=== PATIENT | male | born 1940 | race Caucasian/White ===

== ENCOUNTER 2018-11-09 10:49 | Emergency (ER) | payer MEDICARE ==
[2018-11-09 11:07] VITALS: BP 132/82
--- NOTE | 2018-11-09 11:58 | UC ---
Respiratory Complaint HPI - HPI Summary HPI Summary: Patient is 78 year old gentleman, who presents today to the urgent care with sore throat headache and sinus pressure for past 1 months . There is associated post nasal drip . Reports headache behind the eye. There is cough productive of significant phlegm . Last night had some ear discomfort in bilateral ears . noticed some pinkish discharge from the ear on his Q tip . No sick contacts . No skin rash. Denies any fever, chills, cough chest pain or shortness of breath . Denies any abdominal pain , nausea or vomiting but has intermittent diarrhea and constipation. His last bowel movement was last week. - History of Current Complaint Chief Complaint: UCGeneralIllness Stated Complaint: SINUS CONCERN Time Seen by Provider: 11/09/18 11:52 Hx Obtained From: Patient Pain Intensity: 0 - Allergies/Home Medications Allergies/Adverse Reactions: Allergies Allergy/AdvReac Type Severity Reaction Status Date / Time No Known Allergies Allergy Verified 11/09/18 11:02 Home Medications: Home Medications Bupropion XL* [Wellbutrin XL *] 300 mg PO DAILY 11/09/18 [History Confirmed 04/22] PMH/Surg Hx/FS Hx/Imm Hx - Additional Past Medical History Additional PMH: HTN COPD, GERD Anxiety Previously Healthy: Yes - Surgical History Surgical History: Yes Surgery Procedure, Year, and Place: gallbladder - Family History Known Family History: Positive: Hypertension, Respiratory Disease - Social History Alcohol Use: None Substance Use Type: None Smoking Status (MU): Former Smoker Have You Smoked in the Last Year: No When Did the Patient Quit Smoking/Using Tobacco: 1986 Review of Systems All Other Systems Reviewed And Are Negative: Yes Constitutional: Positive: Negative Skin: Positive: Negative Eyes: Positive: Negative ENT: Positive: Sore Throat, Ear Ache, Sinus Congestion, Sinus Pain/Tenderness Respiratory: Positive: Negative, Cough - productive of phlegm Cardiovascular: Positive: Negative Gastrointestinal: Positive: Diarrhea, Other - intermittent diarrhea and constipation Genitourinary: Positive: Negative Motor: Positive: Negative Neurovascular: Positive: Negative Musculoskeletal: Positive: Negative Neurological: Positive: Negative Psychological: Positive: Negative Is Patient Immunocompromised?: No Physical Exam - Summary Physical Exam Summary: Physical Exam: Const: Appears well. No signs of apparent distress present. Alert and oriented x 3. Musculo: Walks with a normal gait. Head/Face: Atraumatic, normocephalic on inspection. Eyes: EOMI and PERRLA in both eyes. Conjunctivae clear. No discharge noted ENT: Hearing normal, TM normal appearing bilaterally . EAC normal appearing bilaterally . Sinus tenderness noted in ethmoid sinuses bilaterally . No pharyngeal erythema, no exudates. No lymphadenopathy . Respiratory: Respirations are unlabored. Lungs clear to auscultation bilaterally, no wheezing , rhonchi or rales noted . CVS: Regular rate and Rhythm, S1S2 normal , no murmurs identified. Extremities: Peripheral circulation is grossly normal. Pulses 2+ Abdomen : Soft, slightly bloated , mild generalized tenderness in all quadrants. Bowel sounds present . No guarding , rebound tenderness or rigidity noted. Skin: No lesions or rash located on the upper extremities or on the lower extremities. Neuro: Cranial nerves II to XII intact, motor and sensory intact. DTR Intact bilaterally. Mood is normal. Affect is normal. Triage Information Reviewed: Yes Vital Signs: Initial Vital Signs Temp 97.4 F 11/09/18 10:59 Pulse 74 11/09/18 10:59 Resp 18 11/09/18 10:59 BP 132/82 11/09/18 10:59 Pulse Ox 98 11/09/18 10:59 Vital Signs Reviewed: Yes UC Diagnostic Evaluation - Laboratory O2 Sat by Pulse Oximetry: 98 Respiratory Course/Dx - Course Course Of Treatment: During the visit today, we discussed the findings which can be due to chronic sinusitis over past month - start him on augmentin. Also ,he did not report any abdominal pain but on exam there is mild generalized tenderness and minimal bloating- this can be due to constipation as his last Bowel movement was last week saturday. Plan to start him on laxative . I will prescribe the medication to the pharmacy . Patient expressed understanding . - Differential Dx/Diagnosis Provider Diagnosis: Sinusitis, Constipation Discharge - Sign-Out/Discharge Documenting (check all that apply): Patient Departure All imaging exams completed and their final reports reviewed: No Studies - Discharge Plan Condition: Stable Disposition: HOME Prescriptions: Amoxicillin/Clavulanate TAB* [Augmentin TAB 875*] 875 mg PO BID 14 Days #28 tab Polyethylene Glycol 3350 [Miralax] 17 gm PO DAILY 7 Days #1 [email or web address] Patient Education Materials: Constipation (ED), Sinusitis (ED) Referrals: Kumar Godoy MD [Primary Care Provider] - 2 Days Additional Instructions: Please start taking the medication as prescribed to the pharmacy . Follow up with your primary care doctor in 2 days. Patients blood pressure slightly high in Urgent care today , plan follow up with PCP for better control Return to Urgent care / ER if symptoms get worse. - Billing Disposition and Condition Condition: STABLE Disposition: Home
== END 2018-11-09 12:22 | disposition home or self-care (01) ==
LOC: UCCORT 10:49
DX: J32.9 Chronic sinusitis, unspecified (principal); K59.00 Constipation, unspecified; I10 Essential (primary) hypertension; Z87.891 Personal history of nicotine dependence
CPT/HCPCS: 99212; G0463

== ENCOUNTER 2018-11-22 10:16 | Emergency (ER) | payer MEDICARE ==
[2018-11-22 10:41] VITALS: BP 142/62
--- NOTE | 2018-11-22 11:41 | UC ---
UC General HPI - HPI Summary HPI Summary: pt is c/o a burning rash on his penis that he noticed yesterday. pt states he routinely pulls the skin back to clean the area. he does have some burning with urination and wants to r/ a uti. pt also has episodes of dizziness that are not new for him. he notes more dizziness with uti's thus want to rule that out. pt is on augmentin for a sinusitis and has one dose left. no HDZ, visual changes or focal deficits. no current dizziness. - History of Current Complaint Chief Complaint: UCGU Stated Complaint: URINARY/PERSONAL Time Seen by Provider: 11/22/18 11:33 Hx Obtained From: Patient, Family/General Internal Medicine Doctor Pain Intensity: 2 Associated Signs & Symptoms: Negative: Abdominal Pain, Fever - Allergy/Home Medications Allergies/Adverse Reactions: Allergies Allergy/AdvReac Type Severity Reaction Status Date / Time No Known Allergies Allergy Verified 11/22/18 10:36 Home Medications: Home Medications Polyethylene Glycol 3350 [Miralax] 17 gm PO DAILY PRN 11/22/18 [History Confirmed 11/22/18] PMH/Surg Hx/FS Hx/Imm Hx Respiratory History: COPD GI/ History: Gastroesophageal Reflux Neurological History: Dementia Psychological History: Depression - Surgical History Surgical History: Yes Surgery Procedure, Year, and Place: gallbladder - Family History Known Family History: Positive: Hypertension, Respiratory Disease - Social History Lives: With Family Alcohol Use: None Substance Use Type: None Smoking Status (MU): Former Smoker Have You Smoked in the Last Year: No When Did the Patient Quit Smoking/Using Tobacco: 1986 - Immunization History Vaccination Up to Date: Yes Review of Systems All Other Systems Reviewed And Are Negative: Yes Constitutional: Positive: Negative Skin: Positive: Rash Eyes: Positive: Negative ENT: Positive: Negative Respiratory: Positive: Negative Cardiovascular: Positive: Negative Gastrointestinal: Positive: Negative Motor: Positive: Negative Neurovascular: Positive: Negative Musculoskeletal: Positive: Negative Neurological: Positive: Negative Psychological: Positive: Negative Physical Exam Triage Information Reviewed: Yes Appearance: Well-Appearing Vital Signs: Initial Vital Signs Temp 97.9 F 11/22/18 10:31 Pulse 90 11/22/18 10:31 Resp 18 11/22/18 10:31 BP 142/62 11/22/18 10:31 Pulse Ox 97 11/22/18 10:31 Vital Signs Reviewed: Yes Eyes: Positive: Conjunctiva Clear ENT: Positive: Normal ENT inspection Neck: Positive: Supple, Nontender, No Lymphadenopathy Respiratory: Positive: No respiratory distress Cardiovascular: Positive: RRR Abdomen Description: Positive: Nontender, Other: - No inguinal adenopathy Bowel Sounds: Positive: Present Male Genital Exam: Positive: Other - Strong femoral pulses. No inguinal adenoapthy. No scrotal/testicular swelling or rash. Circumcised but when slides skin at base of penis back, the base of his glans is macerated and red. No odor or buildup. Musculoskeletal: Positive: ROM Intact Neurological: Positive: Alert, Other: - CN grossly intact. steady gait. Psychological: Positive: Normal Response To Family, Age Appropriate Behavior Skin Exam: Normal Diagnostics - Laboratory Diagnostic Studies Completed/Ordered: u/a= trace leukocytes and ketones. culture pending. Course/Dx - Course Course Of Treatment: dizziness is chronic and recurrent. no focal deficits. no concern for tia/cva. u/a only trace leukocytes with culture pending thus no tx for uti. exam c/w balanitis. pt hase been on augmentin all along and has one dose left thus will only cover for fungal infection. - Diagnoses Provider Diagnosis: Balanitis Discharge - Sign-Out/Discharge Documenting (check all that apply): Patient Departure All imaging exams completed and their final reports reviewed: No Studies - Discharge Plan Condition: Stable Disposition: HOME Prescriptions: Miconazole TOPICAL CREAM 2%* [Monistat 2%*] 1 applic TOPICAL BID 10 Days #1 tube Patient Education Materials: Rohittis (ED) Referrals: Kumar Godoy MD [Primary Care Provider] - 5 Days - Billing Disposition and Condition Condition: STABLE Disposition: Home - Attestation Statements Provider Attestation: I was available for consult. This patient was seen by the SANDI. The patient was not presented to, seen by, or examined by me. EK
== END 2018-11-22 11:55 | disposition home or self-care (01) ==
LOC: UCCORT 10:16
DX: N48.1 Balanitis (principal); Z87.891 Personal history of nicotine dependence
CPT/HCPCS: 81003; 87086; 99212; G0463

== ENCOUNTER 2019-02-15 16:17 | Emergency (ER) | payer MEDICARE ==
[2019-02-15 17:43] VITALS: BP 155/88
--- NOTE | 2019-02-15 18:10 | UC ---
Respiratory Complaint HPI - HPI Summary HPI Summary: C/O congestion, sore throat, cough bringing up mucus. Sweats at night. No sinus pain. Some increased SOB. Pain with respiration under the left side of the chin / upper left neck. - History of Current Complaint Chief Complaint: UCGeneralIllness Stated Complaint: SORE THROAT/LARYNGITIS Time Seen by Provider: 02/15/19 18:00 Hx Obtained From: Patient Onset/Duration: Sudden Onset, Lasting Days - 4, Worse Since - onset Severity Initially: Moderate Severity Currently: Severe Pain Intensity: 10 Character: Cough: Productive - post nasal drip Aggravating Factors: Deep Breaths, Recumbent Position Associated Signs And Symptoms: Positive: Hemoptysis - x 4 days, URI, Nasal Congestion, Hoarseness Related History: Seasonal Allergies - Allergies/Home Medications Allergies/Adverse Reactions: Allergies Allergy/AdvReac Type Severity Reaction Status Date / Time No Known Allergies Allergy Verified 02/15/19 17:37 PMH/Surg Hx/FS Hx/Imm Hx Cardiovascular History: Hypertension Respiratory History: COPD - Surgical History Surgical History: Yes Surgery Procedure, Year, and Place: gallbladder - Family History Known Family History: Positive: Hypertension, Respiratory Disease Negative: Diabetes - Social History Occupation: Retired Lives: With Family Alcohol Use: Rare Substance Use Type: None Smoking Status (MU): Former Smoker Have You Smoked in the Last Year: No When Did the Patient Quit Smoking/Using Tobacco: 1985 - Immunization History Vaccination Up to Date: Yes Review of Systems All Other Systems Reviewed And Are Negative: Yes ENT: Positive: Sore Throat - actually left anterior neck pain in the platysma, Nasal Discharge Respiratory: Positive: Shortness Of Breath, Cough, Other - hemoptysis Is Patient Immunocompromised?: No Physical Exam Triage Information Reviewed: Yes Appearance: No Pain Distress, Well-Nourished, Ill-Appearing - mild Vital Signs: Initial Vital Signs Temp 98.8 F 02/15/19 17:40 Pulse 95 02/15/19 17:40 Resp 20 02/15/19 17:40 BP 155/88 02/15/19 17:40 Pulse Ox 95 02/15/19 17:40 Vital Signs Reviewed: Yes Eyes: Positive: Conjunctiva Inflamed ENT: Positive: Pharynx normal, TMs normal, Other - hard of hearing Neck: Positive: No Lymphadenopathy, Tenderness @ - left anterior platysma Respiratory: Positive: Decreased breath sounds, Wheezing - end expiratory wheezes diffusely Cardiovascular Exam: Normal Musculoskeletal Exam: Normal Neurological Exam: Normal Psychological Exam: Normal Skin Exam: Normal Respiratory Course/Dx - Differential Dx/Diagnosis Differential Diagnosis/HQI/PQRI: Exacerbation Of COPD, Lower Resp Infection, Sinusitis Provider Diagnosis: Pneumonia, COPD exacerbation Discharge - Sign-Out/Discharge Documenting (check all that apply): Patient Departure All imaging exams completed and their final reports reviewed: No Studies - Discharge Plan Condition: Stable Disposition: HOME Prescriptions: DOXYcycline CAP(*) [DOXYcycline 100MG CAP(*)] 100 mg PO BID #20 cap predniSONE TAB* [Deltasone TAB*] 50 mg PO DAILY #7 tab Patient Education Materials: Pneumonia (ED), COPD (Chronic Obstructive Pulmonary Disease) (ED), Doxycycline (By mouth), Prednisone (By mouth) Referrals: Kumar Godoy MD [Primary Care Provider] - 2 Weeks (10 days recheck pneumonia.) - Billing Disposition and Condition Condition: STABLE Disposition: Home
[2019-02-15] MEDS ORDERED: DOXYcycline CAP(*) 100 MG PO ONE (18:34)
[2019-02-15] MEDS ORDERED: predniSONE TAB* 20 MG PO ONE (18:34)
== END 2019-02-15 18:54 | disposition home or self-care (01) ==
LOC: UCCORT 16:17
DX: J18.9 Pneumonia, unspecified organism (principal); J44.1 Chronic obstructive pulmonary disease with (acute) exacerbation; I10 Essential (primary) hypertension; Z87.891 Personal history of nicotine dependence
CPT/HCPCS: 71046; 99212; A9270-GY; G0463; J7512